=== PATIENT | female | born 1990 | race African-American/Black ===

== ENCOUNTER 2017-02-07 18:24 | Emergency (ER) | payer OTHER ==
[~2017-02-07 18:24] MED LIST: ACETAMINOPHEN PO; ADDERALL; ALBUTEROL17 GM; ALBUTEROL17 GM INH; BACTRIM DS TABL1 TA1 PO; BACTRIM DS TABL1 TA2 PO; BACTRIM DS TABL1 TAB PO; CLEOCIN HCL300 M1 PO; CLEOCIN PO; DAKIN'S473 M1 MC; DICLOFENAC PO; DOXYCYCLINE; E-MYCIN250 MG PO; FLEXERIL10 M1 PO; FLONASE16 GM; IBUPROFEN PO; KEFLEX500 MG PO; LEVAQUIN PO; LORTAB 5/500 TA1 TA1 PO; LORTAB 7.5-5001 TAB PO; NO MEDICATIONS; NORCO 5/325 TAB1 TAB PO; PEN-VEE K PO; PERCOCET 10/3251 TAB PO; PERCOCET5/325 PO; PRENATAL1 TA1; PRENATAL1 TA1 PO; STOOL SOFTENER100 M1 PO; TYLENOL #3 PO; VICODIN PO; VOLTAREN50 MG PO; [UNRECOGNIZED DRUG - REMARK]
== END 2017-02-07 19:38 | disposition home or self-care (01) ==
LOC: SED 18:24
DX: L02.416 Cutaneous abscess of left lower limb (principal); J45.909 Unspecified asthma, uncomplicated; Z79.899 Other long term (current) drug therapy
CPT/HCPCS: 10060; 87070; 87205; 99283

== ENCOUNTER 2017-02-10 17:57 | Emergency (ER) | payer OTHER | END 2017-02-10 19:40 | disposition home or self-care (01) | LOC: CED 17:57 | DX: Z48.03 Encounter for change or removal of drains (principal); J45.909 Unspecified asthma, uncomplicated; L02.416 Cutaneous abscess of left lower limb | CPT/HCPCS: 99282 ==

== ENCOUNTER 2017-04-23 09:00 | Observation (INO) | payer OTHER ==
[~2017-04-23] VITALS: Ht 162.6 cm; Wt 57.1 kg
--- NOTE | ~2017-04-23 | HP ---
Unit #: [id number] #: [id number] Patient: DIANNE SULLIVAN [id number] [address] [place], [place] [address] [id number] MR#: [id number] NAME: DIANNE SULLIVAN ROOM: 219 Age: 27 Sex: F Admission Date: 04/23/2017 : 1990 Attending Physician: Bhavesh Iyer Jr., M.D. Primary Care Physician: [facility] HISTORY AND PHYSICAL CHIEF COMPLAINT Severe pain in the left axilla. PRESENT ILLNESS The patient is a 27-year-old black female who has had previous history of infected abscess of the left axilla probably compatible with hydradenitis. She presents now to the emergency room with three days' history of severe pain and is unable to move her arm much due to the severe pain. She has had drainage from a small abscess of the arm and denies any fever, chills and any other symptoms. PAST MEDICAL HISTORY She had a history of asthma and smokes an occasional cigar/cigarette. PAST SURGICAL HISTORY Surgery: In the past she has had several I/Ds in the past especially of the buttocks. MEDICATION She is on vitamins and stool softener. OBSTRETICAL She just recently has had a baby but is not . ALLERGIES None known. TRANSFUSIONS None in the past. FAMILY HISTORY Family history is noncontributory. SOCIAL HISTORY The patient is single, smokes approximately a half a pack of cigarettes per day and is a nondrinker. IMMUNIZATIONS Are up to date. REVIEW OF SYSTEMS Ten-system review is performed which is nonremarkable except as noted in Unit #: [id number] #: [id number] Patient: DIANNE SULLIVAN the present illness. PHYSICAL EXAMINATION VITAL SIGNS: Temperature on admission 98.4. Pulse 76. Respirations 16. Blood pressure 117/59. GENERAL DESCRIPTION: The patient is a well-developed, thin, 27-year-old black female in moderate distress due to pain. HEENT: Is nonremarkable. NECK: Supple. CHEST: There is equal bilateral expansion with bilateral equal breath sounds. The lungs are clear bilaterally. HEART: Is regular rhythm, without murmurs or gallops. There is no cardiomegaly clinically. ABDOMEN: Soft, nontender, benign, without palpable masses or organomegaly. There is no gross abdominal distention, no guarding or rebound. Active bowel sounds present. No evidence of ascites or hernias. EXTREMITIES: Full range of motion without limitation. There is no evidence of peripheral edema. There is a significant abscess of the left axilla which had been drained today apparently in the ER and evidence of significant hydradenitis suppurativa in the surrounding area in the left axilla. NEUROLOGICAL: Is grossly intact. IMPRESSION The patient most likely chronic and acute hydradenitis of the left axilla. PLAN The plan will be to admit her for incision, drainage and sharp excisional debridement of this area after IV antibiotics under general anesthesia. Dictated by Bhavesh Iyer Jr. MTalon. ISIDRO/meeta TD: 04/23/2017 20:59 JOB #: [id number] HISTORY AND PHYSICAL Page 1 of 1 X Bhavesh Iyer MD X HISTORY AND PHYSICAL
--- NOTE | ~2017-04-23 | OR ---
Unit #: [id number] #: [id number] Patient: DIANNE SULLIVAN [id number] [address] [address] [id number] I MR#: [id number] NAME: DIANNE SULLIVAN ROOM: 219 Date of Procedure: 04/24/2017 Admission Date: 04/23/2017 Surgeon: Sukumar Chavez M.D. : 1990 Attending Physician: Bhavesh Iyer Jr., M.D. Primary Care Physician: [facility] OPERATIVE REPORT PREOPERATIVE DIAGNOSIS Right axillary abscess. POSTOPERATIVE DIAGNOSIS Right axillary abscess. PROCEDURE PERFORMED Incision and drainage of right axillary abscess with sharp excisional debridement of skin and subcutaneous tissue, 3 x 3 cm area. ANESTHESIA General LMA anesthesia with 0.5% Marcaine plain local anesthesia. FINDINGS The patient had a large abscess in the right axilla. The overlying involved skin was sharply debrided. SPECIMENS Sent to microbiology and pathology. COMPLICATIONS None apparent. CONDITION The patient tolerated the procedure well. INDICATIONS FOR PROCEDURE The patient is a 27-year-old black female, who presents at this time with right axillary abscess. DESCRIPTION OF PROCEDURE After obtaining informed consent as well as receiving scheduled antibiotics, the patient was brought to the operating room and after adequate general LMA anesthesia was obtained, had her right axilla prepped and draped in a sterile fashion. An incision was made into the abscess cavity and a large amount of purulent material was evacuated. Cultures were sent. All loculations were broken up. Some of the overlying tissue was sharply debrided with beneath skin and subcutaneous tissue with a scalpel. Hemostasis was then obtained with the Bovie. The wound was irrigated. Hemostasis was obtained with the Bovie, infiltrated with 0.5% Marcaine plain local anesthesia, and packed with a saline-soaked fluff. A dry dressing was applied. Tape was then applied. Needle counts, sponge Unit #: [id number] #: [id number] Patient: DIANNE SULLIAVN counts, and instrument counts were all correct as reported by the scrub nurse x2. The patient went from the operating room to the recovery room in stable condition. Dictated by... Sukumar Chavez M.D. EDWARD/lizeth TD: 04/25/2017 12:57 JOB #: [id number] CC: [facility] OPERATIVE REPORT Page 1 of 1 X Sukumar Chavez MD PROCEDURE OPERATIVE NOTE
--- NOTE | ~2017-04-23 | DS ---
Unit #: [id number] #: [id number] Patient: DIANNE SULLIVAN [id number] [address] [place], [place] [address] [id number] I MR#: [id number] NAME: DIANNE SULLIVAN ROOM: 219 Age: 27 Sex: F Admission Date: 04/23/2017 : 1990 Discharge Date: 04/25/2017 Attending Physician: Bhavesh Iyer Jr., M.D. [facility] DISCHARGE SUMMARY DISCHARGE DIAGNOSIS Right axillary abscess, status post hidradenitis suppurativa. OPERATIVE PROCEDURE Drainage of right axillary abscess. DISCHARGE MEDICATIONS Lortab 7.5 one p.o. q.4 hours p.r.n. pain and doxycycline 100 mg p.o. b.i.d. HISTORY OF PRESENT ILLNESS AND HOSPITAL COURSE This is a 27-year-old black female with right axillary abscess secondary to hidradenitis suppurativa. She was admitted, taken to surgery. This was opened, drained, and cleaned out per Dr. Chavez. Postop course has been benign. She is ready to be discharged on dressing changes b.i.d. She is to do no heavy lifting or strenuous activity. She is discharged on 2 medications as noted above. We will see her back in the office in 7 to 10 days for followup evaluation. Dictated by... Viviane Obando/lizeth TD: 04/28/2017 16:54 JOB #: [id number] DISCHARGE SUMMARY Page 1 of 1 X Joseph Palomino MD X DISCHARGE SUMMARY
[2017-04-23 10:54] LABS: BASOPHIL# 0.1 X10e3 (0-0.3); BASOPHIL% 0.3 % (0-2.5); EOSINOPHIL# 0.1 X10e3 (0-0.7); EOSINOPHIL% 0.5 % (0.0-7.0); HEMATOCRIT 40.1 % (35.0-45.0); HEMOGLOBIN 13.6 gm/dL (12.0-16.0); LYMPHOCYTE% 11.8 % (17.0-45.0); MEAN CELL VOLUME 90.8 FL (83-96); MEAN CORPUSCULAR HEMOGLOBIN 30.7 PG (28-34); MEAN CORPUSCULAR HGB CONC 33.8 g/dL (30-36); MEAN PLATELET VOLUME 9.7 FL (6.5-11.5); MONOCYTE# 0.9 X10e3 (0-1.0); MONOCYTE% 5.7 % (3.0-12.0); NEUTROPHIL# 13.5 X10e3 (1.5-7.1); NEUTROPHIL% 81.7 % (40-75); PLATELET COUNT 137 X10e3 (140-420); RED BLOOD COUNT 4.42 X10e (3.90-5.30); RED CELL DISTRIBUTION WIDTH 13.1 % (11.0-15.5); WHITE BLOOD COUNT 16.5 X10e3 (4.0-10.5)
[2017-04-23 10:55] LABS: DIFF IND YES
[2017-04-23 11:09] LABS: PLATELET ESTIMATE NORMAL (NORMAL); RBC NORMAL YES
[2017-04-23 11:13] LABS: ALBUMIN SERUM 3.9 g/dL (3.5-5.0); BILIRUBIN,TOTAL 0.8 mg/dL (0.2-2.0); CALCIUM SERUM 8.6 mg/dL (8.4-10.2); CREATININE SERUM 0.6 mg/dL (0.6-1.4); GLOM FILT RATE Estimated 143.8 mL/min (>60); POTASSIUM 3.4 mmol/L (3.5-5.1); PROTEIN TOTAL SERUM 7.1 g/dL (6.0-8.3)
[2017-04-25 06:05] LABS: CALCIUM SERUM 8.6 mg/dL (8.4-10.2); CREATININE SERUM 0.5 mg/dL (0.6-1.4); GLOM FILT RATE Estimated 152.7 mL/min (>60); POTASSIUM 3.7 mmol/L (3.5-5.1)
[2017-04-25] MEDS ORDERED: DOXYCYCLINE MO100 MG PO (07:15)
[2017-04-25] MEDS ORDERED: LORTAB 7.5-3251 EACH PO (07:15)
== END 2017-04-25 08:37 | disposition home or self-care (01) ==
LOC: CFTX 09:00 → CED 09:00 → CFTX 09:55 → CEDOF 12:20 → CFTX 13:09 → CEDOF 13:09 → C2A 14:49
PROVIDERS: Physician Assistant; Surgery
DX: L02.411 Cutaneous abscess of right axilla (principal); L72.0 Epidermal cyst; J45.909 Unspecified asthma, uncomplicated; F17.210 Nicotine dependence, cigarettes, uncomplicated; F17.290 Nicotine dependence, other tobacco product, uncomplicated
CPT/HCPCS: 80048; 80053; 84703; 85025; 87070; 87075; 87205; 88304; 96365; 96375; 96376; 99284; G0378; J1100; J1170; J2250; J2270; J2405; J2543; J2550; J3010; J3370